=== PATIENT | male | born 1960 | race African-American/Black ===

== ENCOUNTER 2022-06-01 04:29 | Day surgery (SDC) | payer OTHER ==
[2022-05-31 15:14] VITALS: BMI 25.1
[2022-06-01 12:15] VITALS: TEMP 97.3
[2022-06-01 12:59] VITALS: BP 148/74; PULSE 102; RESP 17
== END 2022-06-01 12:35 | disposition home or self-care (01) ==
LOC: JASU-ENDO 04:29
PROVIDERS: ATTEND Internal Medicine
PROC: 0DJD8ZZ Inspection of Lower Intestinal Tract, Via Natural or Artificial Opening Endoscopic (ICD-10-PCS; principal; 2022-06-01 09:15)
DX: R19.4 Change in bowel habit (principal); R63.4 Abnormal weight loss